=== PATIENT | female | born 1955 | race American Indian/Alaskan Native ===

== ENCOUNTER 2022-04-09 10:15 | Emergency (ER) | payer SELFPAY ==
--- NOTE | 2022-04-09 11:04 | Emergency Department Report ---
Blank Doc - Documentation Documentation: 66-year-old female that presents to the ED for " low blood count" it was sent by her primary care. 1- This is a initial triage assessment/medical screening only. Full assessment and work-up will be completed once the patient is in proper hospital gown, ED bed and in a private room setting. This initial assessment/diagnostic orders/clinical plan/ treatment(s) is/are subject to change based on pt's health status, clinical progression and re-assessment by fellow clinical providers in the ED. Further treatment and workup at subsequent clinical providers discretion. Patient/guardians urged not to elope from ED as their condition may be serious if not clinically assessed and managed. 2-labs The patient was evaluated in the emergency department for symptoms described in the history of present illness. He/she was evaluated in the context of the global COVID-19 pandemic, which necessitated consideration that the patient might be at risk for infection with the virus that causes COVID-19. Institutional protocols and algorithms that pertain to the evaluation of patie nts at risk for COVID-19 are in a state of rapid change based on information released by regulatory bodies including the CDC and federal and state organizations. These policies and algorithms were followed during the patient's care in the emergency department. Please note that these policies, procedures and recommendations changed on a rapid basis.
--- NOTE | 2022-04-09 11:53 | XRay Report ---
CHEST 2 VIEWS INDICATION / CLINICAL INFORMATION: low sats. COMPARISON: CTA chest 10/20/2014, chest radiograph 10/16/2014 FINDINGS: SUPPORT DEVICES: None. HEART / MEDIASTINUM: Mild cardiomegaly. LUNGS / PLEURA: Hazy consolidations within the bilateral lung bases. Small right pleural effusion. No pneumothorax. ADDITIONAL FINDINGS: No significant additional findings. IMPRESSION: 1. Mild cardiomegaly and small right pleural effusion. 2. Hazy bibasilar consolidations possibly representing superimposed pneumonia. Signer Name: Kevin Toledo MD Signed: 04/09/2022 11:48 AM Workstation Name: [id number]
[2022-04-09 12:02] LABS: Hemoglobin 6.5 gm/dl (10.1-14.3); Mean Corpuscular HGB Conc 36 % (30-34); Mean Corpuscular Volume 80 fl (79-97); Platelet Count 213 K/mm3 (140-440); Red Blood Count 2.26 M/mm3 (3.65-5.03)
[2022-04-09 12:04] LABS: Hematocrit 18.1 % (30.3-42.9); Red Cell Distribution Width 26.1 % (13.2-15.2)
[2022-04-09 12:12] LABS: INR 0.95 (0.87-1.13)
[2022-04-09 12:13] LABS: Partial Thromboplastin Time 28.4 Sec. (24.2-36.6)
[2022-04-09 12:37] LABS: Alanine Aminotransferase 16 units/L (7-56); Albumin 4.4 g/dL (3.9-5); Blood Urea Nitrogen 12 mg/dL (7-17); Calcium 10.8 mg/dL (8.4-10.2); Hemolysis Index 34
[2022-04-09 12:41] LABS: Total Cells Counted 100
[2022-04-09 12:42] LABS: Anisocytosis 3+
[2022-04-09 12:43] LABS: Ovalocytes Few; Poikilocytosis 3+; Sickle Cells 2+; Target Cells 1+
[2022-04-09 12:44] LABS: BUN/Creatinine Ratio 24; Platelet Estimate Consistent w Auto; Schistocytes Rare
[2022-04-09] MEDS ORDERED: SODIUM CHLORIDE 0.9% 500 ML 500 ML IV ONE (12:51)
--- NOTE | 2022-04-09 12:57 | Emergency Department Report ---
ED Shortness of Breath HPI - General Chief Complaint: Recheck/Abnormal Lab/Rx Stated Complaint: DR REFERRAL/LOW BLOOD COUNT Time Seen by Provider: 04/09/22 11:02 Source: patient Mode of arrival: Ambulatory Limitations: No Limitations - History of Present Illness Initial Comments: 66-year-old female with a history of PEs, anemia, and sickle cell disease presents to the emergency department after being found with a "low blood count" by her PCP approximately 3 days ago. Patient was told that her hemoglobin was 5.5, and to get evaluated in the emergency department. Patient's only complaint is mild shortness of breath, but denies any other symptoms. Denies chest pain, palpitations, weakness, or dizziness. Patient reports similar proximately 5 yea rs ago, for which she had a blood transfusion. Patient denies vaginal or GI bleeding. Denies known alleviating or aggravating factors. - Related Data Previous Rx's Medication Instructions Recorded Last Taken Type Azithromycin [Zithromax TAB] 500 mg PO QDAY #5 tablet 10/24/14 Unknown Rx Enoxaparin [Lovenox] 40 mg SQ BID 1 Days syringe 10/24/14 Unknown Rx Rivaroxaban [Xarelto] 15 mg PO BID #42 tablet 04/09/22 Unknown Rx Rivaroxaban [Xarelto] 20 mg PO QDAY #10 tab 04/09/22 Unknown Rx Allergies Allergy/AdvReac Type Severity Reaction Status Date / Time No Known Allergies Allergy Verified 04/09/22 12:10 ED Review of Systems ROS: Stated complaint: DR REFERRAL/LOW BLOOD COUNT Other details as noted in HPI Comment: All other systems reviewed and negative Constitutional: denies: chills, fever, weakness Eyes: denies: eye pain, eye discharge, vision change ENT: denies: ear pain, throat pain Respiratory: shortness of breath. denies: cough, SOB with exertion, wheezing Cardiovascular: denies: chest pain, palpitations, edema Endocrine: no symptoms reported Gastrointestinal: denies: abdominal pain, nausea, diarrhea Genitourinary: denies: urgency, dysuria, discharge Musculoskeletal: denies: back pain, joint swelling, arthralgia Skin: denies: rash, lesions Neurological: denies: headache, weakness, paresthesias Psychiatric: denies: anxiety, depression Hematological/Lymphatic: denies: easy bleeding, easy bruising ED Past Medical Hx - Past Medical History Previous Medical History?: Yes Hx Congestive Heart Failure: No Hx Diabetes: No Hx Sickle Cell Disease: Yes Hx Asthma: No Hx COPD: No Additional medical history: anemia - Social History Smoking Status: Never Smoker Substance Use Type: None - Medications Home Medications: Home Medications Medication Instructions Recorded Confirmed Last Taken Type Azithromycin [Zithromax TAB] 500 mg PO QDAY #5 tablet 10/24/14 Unknown Rx Enoxaparin [Lovenox] 40 mg SQ BID 1 Days syringe 10/24/14 Unknown Rx Rivaroxaban [Xarelto] 15 mg PO BID #42 tablet 04/09/22 Unknown Rx Rivaroxaban [Xarelto] 20 mg PO QDAY #10 tab 04/09/22 Unknown Rx ED Physical Exam - General Limitations: No Limitations General appearance: alert, in no apparent distress - Head Head exam: Present: atraumatic, normocephalic - Eye Eye exam: Present: normal appearance, PERRL, EOMI - ENT ENT exam: Present: mucous membranes moist - Neck Neck exam: Present: normal inspection - Respiratory Respiratory exam: Present: normal lung sounds bilaterally. Absent: respiratory distress, wheezes, rales - Cardiovascular Cardiovascular Exam: Present: regular rate, normal rhythm. Absent: systolic murmur, diastolic murmur, rubs, gallop - GI/Abdominal GI/Abdominal exam: Present: soft, normal bowel sounds. Absent: distended, tenderness - Extremities Exam Extremities exam: Present: normal inspection - Back Exam Back exam: Present: normal inspection - Neurological Exam Neurological exam: Present: alert, oriented X3, CN II-XII intact, normal gait - Psychiatric Psychiatric exam: Present: normal affect, normal mood - Skin Skin exam: Present: warm, dry, intact, normal color. Absent: rash ED Course Vital Signs 04/09/22 04/09/22 04/09/22 11:04 12:47 12:48 Temperature 99 F 98.9 F Pulse Rate 77 76 Respiratory 20 17 18 Rate Blood Pressure Blood Pressure 137/36 [Left] O2 Sat by Pulse 92 95 Oximetry 04/09/22 04/09/22 04/09/22 13:00 13:28 13:30 Temperature Pulse Rate 67 79 68 Respiratory 20 22 19 Rate Blood Pressure 151/60 151/60 151/60 Blood Pressure [Left] O2 Sat by Pulse 100 99 100 Oximetry 04/09/22 04/09/22 04/09/22 13:46 14:00 14:16 Temperature Pulse Rate 70 61 70 Respiratory 17 13 20 Rate Blood Pressure 151/60 155/63 151/60 Blood Pressure [Left] O2 Sat by Pulse 100 100 100 Oximetry 04/09/22 04/09/22 04/09/22 14:30 14:46 15:00 Temperature Pulse Rate 63 65 80 Respiratory 17 14 21 Rate Blood Pressure 151/60 141/50 141/50 Blood Pressure [Left] O2 Sat by Pulse 100 100 92 Oximetry 04/09/22 04/09/22 04/09/22 15:16 15:30 15:40 Temperature Pulse Rate 72 63 60 Respiratory 20 19 19 Rate Blood Pressure 153/67 153/67 153/67 Blood Pressure [Left] O2 Sat by Pulse 100 100 100 Oximetry 04/09/22 04/09/22 04/09/22 15:50 15:56 16:00 Temperature 98.8 F Pulse Rate 66 61 61 Respiratory 16 19 19 Rate Blood Pressure 141/49 136/52 136/52 Blood Pressure [Left] O2 Sat by Pulse 100 100 100 Oximetry 04/09/22 04/09/22 04/09/22 16:04 16:09 16:10 Temperature 98.7 F 99.3 F Pulse Rate 64 Respiratory 14 Rate Blood Pressure 140/50 Blood Pressure [Left] O2 Sat by Pulse 100 Oximetry 04/09/22 04/09/22 04/09/22 16:20 16:30 16:40 Temperature Pulse Rate 63 60 63 Respiratory 18 15 13 Rate Blood Pressure 141/55 142/53 130/52 Blood Pressure [Left] O2 Sat by Pulse 100 100 100 Oximetry 04/09/22 04/09/22 04/09/22 16:50 17:00 17:10 Temperature Pulse Rate 64 60 59 L Respiratory 16 14 14 Rate Blood Pressure 142/56 147/51 129/52 Blood Pressure [Left] O2 Sat by Pulse 100 100 100 Oximetry 04/09/22 04/09/22 04/09/22 17:20 17:30 17:40 Temperature Pulse Rate 74 61 57 L Respiratory 20 14 16 Rate Blood Pressure 128/42 130/48 132/52 Blood Pressure [Left] O2 Sat by Pulse 100 100 100 Oximetry 04/09/22 04/09/22 04/09/22 17:50 18:00 18:03 Temperature 98.8 F Pulse Rate 57 L 57 L Respiratory 15 16 Rate Blood Pressure 126/52 129/53 Blood Pressure [Left] O2 Sat by Pulse 100 100 Oximetry ED Medical Decision Making - Lab Data Result diagrams: 04/09/22 11:41 04/09/22 11:41 - Radiology Data Radiology results: report reviewed cta chest: IMPRESSION: 1. Small acute pulmonary embolism within a distal segmental branch the left lower lobe. 2. Likely changes of chronic PE within a lobar branch of the right lower lobe, unchanged dating back to and 15. 3. Splenic atrophy and osseous changes suggestive of sickle cell anemia. 4. Multiple incidental pulmonary nodule(s) in the bilateral lungs measuring 6 x 4 mm with solid characteristics. Recommendation according to Fleischner Society 2017 Guidelines: Low Risk Patient: CT at 3-6 months, then consider CT at 18-24 months; High Risk Patient: CT at 3-6 months, then CT at 18-24 month. CRITICAL RESULT: acute pulmonary embolism Time of Discovery (NEWSPAPER REPORTER/CDT): 1:40 PM Time of Communication (NEWSPAPER REPORTER/CDT): 1:45 PM Licensed Practitioner Receiving Report: Juliane Cooper MD Read-Back Performed: Yes. Signer Name: Lei Toledo MD Signed: 04/09/2022 2:49 PM Workstation Name: [id number] Transcribed By: Dictated By: LEI TOLEDO MD Electronically Authenticated By: LEI TOLEDO MD Signed Date/Time: 04/09/22 2820 Critical care attestation.: If time is entered above; I have spent that time in minutes in the direct care of this critically ill patient, excluding procedure time. ED Disposition Clinical Impression: Anemia Qualifiers: Anemia type: unspecified type Qualified Code(s): D64.9 - Anemia, unspecified Pulmonary embolism Qualifiers: Pulmonary embolism type: single subsegmental (without acute cor pulmonale) Qualified Code(s): I26.93 - Single subsegmental pulmonary embolism without acute cor pulmonale Disposition: 01 HOME / SELF CARE / HOMELESS Is pt being admited?: No Condition: Stable Instructions: Bleeding Precautions When on Anticoagulant Therapy, Adult, Complete Blood Count, Pulmonary Embolism, Blood Transfusion, Adult, Care After, [id number] Prescriptions: Rivaroxaban [Xarelto] 15 mg PO BID #42 tablet Rivaroxaban [Xarelto] 20 mg PO QDAY #10 tab Referrals: NEHEMIAS RUSSELL MD [Referring] - 3-5 Days Time of Disposition: 19:42
[2022-04-09 13:18] LABS: RBC,Urine < 1.0 /HPF (0.0-6.0)
[2022-04-09 13:53] LABS: Color,Urine Straw (Yellow)
[2022-04-09 13:54] LABS: WBC,Urine < 1.0 /HPF (0.0-6.0)
--- NOTE | 2022-04-09 14:54 | Cat Scan Report ---
CTA CHEST WITH CONTRAST INDICATION / CLINICAL INFORMATION: hypoxia h/o pe r/o pe. TECHNIQUE: Axial CT images were obtained through the chest after injection of 60 mL Omnipaque 350 IV contrast. 3 plane MIP and/or 3D reconstructions were produced. All CT scans at this location are perf ormed using CT dose reduction for ALARA by means of automated exposure control. COMPARISON: CTA chest 10/20/2014, chest radiograph of same date. FINDINGS: PULMONARY EMBOLUS: Small acute pulmonary artery filling defects within the distal segmental branches of the left lower lobe. Likely chronic changes of remote pulmonary embolism within a right lower lobe segmental branch which is unchanged in appearance dating back to 10/20/2014. THORACIC AORTA: No significant abnormality. HEART: No significant abnormality. CORONARY ARTERY CALCIFICATION: Absent -- None. MEDIASTINUM / SPENCER: No significant abnormality. PLEURA: No pleural effusion. No pneumothorax. LUNGS: Bibasilar subsegmental atelectasis. Small bilateral pulmonary nodules nodules as follows. 6 x 4 mm peripheral nodule within the left lower lobe (series 4 image 202). 3 x 3 mm nodule within the ri ght middle lobe (series 4 image 198). ADDITIONAL FINDINGS: None. UPPER ABDOMEN: Atrophic calcified spleen. SKELETAL STRUCTURES: Diffusely heterogeneous bone marrow with the chin vertebral bodies, likely repre senting osteonecrosis in the setting of sickle cell anemia. IMPRESSION: 1. Small acute pulmonary embolism within a distal segmental branch the left lower lobe. 2. Likely changes of chronic PE within a lobar branch of the right lower lobe, unchanged dating back to and 15. 3. Splenic atrophy and osseous changes suggestive of sickle cell anemia. 4. Multiple incidental pulmonary nodule(s) in the bilateral lungs measuring 6 x 4 mm with solid ilene cteristics. Recommendation according to Fleischner Society 2017 Guidelines: Low Risk Patient: CT at 3 -6 months, then consider CT at 18-24 months; High Risk Patient: CT at 3-6 months, then CT at 18-24 mo nth. CRITICAL RESULT: acute pulmonary embolism Time of Discovery (NARROW FABRIC CALENDERER/CDT): 1:40 PM Time of Communication (NARROW FABRIC CALENDERER/CDT): 1:45 PM Licensed Practitioner Receiving Report: Juliane Cooper MD Read-Back Performed: Yes. Signer Name: Kevin Toledo MD Signed: 04/09/2022 2:49 PM Workstation Name: [id number]
[2022-04-09] MEDS ORDERED: ENOXAPARIN 100 MG/1 ML INJ SUB-Q ONE ×2 (15:16→19:00)
[2022-04-09] MEDS ORDERED: SODIUM CHLORIDE 0.9% 500 ML 500 ML ONE (15:28)
[2022-04-09 20:30] VITALS: BP 131/59
--- NOTE | 2022-04-10 10:00 | Electrocardiograph Report ---
[facility] Test Date: 2022-04-09 Test Time: 11:20:01 Pat Name: CELE GENTILE Department: Room: Gender: F Senior Packaging Engineer: REYNA : 1955 Requested By: JEANNE GUNTER Order Number: [id number] Reading MD: Jacek Castillo Measurements Intervals [place] Rate: 80 P: 67 HI: 207 QRS: 60 QRSD: 76 T: 78 QT: 358 QTc: 413 Interpretive Statements Sinus rhythm No previous ECG available for comparison Electronically Signed On 04-10-2022 10:00:26 EDT by Jacek Castillo
== END 2022-04-09 20:10 | disposition home or self-care (01) ==
LOC: ED 10:15
DX: D64.9 Anemia, unspecified (principal); I26.99 Other pulmonary embolism without acute cor pulmonale; D57.1 Sickle-cell disease without crisis
CPT/HCPCS: 36415; 36430; 71046; 71275; 80053; 81001; 85007; 85025; 85610; 85660; 85730; 86850; 86900; 86901; 93005; 96360; 96372; 99284; J1650; J7040; P9016; Q9967

== ENCOUNTER 2022-04-11 17:48 | Emergency (ER) | payer BC ==
[2022-04-11 20:44] VITALS: BP 148/52
== END 2022-04-11 21:50 | disposition home or self-care (01) ==
LOC: ED 17:48
DX: D72.819 Decreased white blood cell count, unspecified (principal); Z53.21 Procedure and treatment not carried out due to patient leaving prior to being seen by health care provider

== ENCOUNTER 2022-04-12 11:09 | Outpatient (CLI) | payer BC ==
[2022-04-12 12:04] LABS: Basophils # (Auto) 0.1 K/mm3 (0.0-0.1); Basophils % (Auto) 2.3 % (0.0-1.8); Eosinophils # (Auto) 0.3 K/mm3 (0.0-0.4); Eosinophils % (Auto) 4.2 % (0.0-4.3); Hemoglobin 6.8 gm/dl (10.1-14.3); Lymphocytes # (Auto) 1.6 K/mm3 (1.2-5.4); Mean Corpuscular HGB Conc 35 % (30-34); Mean Corpuscular Volume 81 fl (79-97); Monocytes # (Auto) 0.6 K/mm3 (0.0-0.8); Monocytes % (Auto) 9.6 % (0.0-7.3); Platelet Count 169 K/mm3 (140-440); Red Blood Count 2.42 M/mm3 (3.65-5.03)
[2022-04-12 13:23] LABS: Red Cell Distribution Width 23.6 % (13.2-15.2)
[2022-04-12 13:25] LABS: Hematocrit 19.6 % (30.3-42.9)
== END 2022-04-12 11:10 | disposition home or self-care (01) ==
LOC: LAB 11:09
PROVIDERS: ATTEND Internal Medicine
DX: D64.9 Anemia, unspecified (principal)
CPT/HCPCS: 36415; 85025

== ENCOUNTER 2022-04-23 14:38 | Emergency (ER) | payer BC ==
--- NOTE | 2022-04-23 16:01 | XRay Report ---
CHEST 2 VIEWS INDICATION / CLINICAL INFORMATION: Chest Pain. COMPARISON: 04/01/2022 FINDINGS: SUPPORT DEVICES: None. HEART / MEDIASTINUM: No significant abnormality. LUNGS / PLEURA: Increased interstitial prominence with bilateral pulmonary opacities No pneumothorax. Signer Name: Francisco J Le MD Signed: 04/23/2022 3:57 PM Workstation Name: [id number]
[2022-04-23 16:51] LABS: Hematocrit 20.6 % (30.3-42.9); Hemoglobin 6.8 gm/dl (10.1-14.3); Mean Corpuscular HGB Conc 33 % (30-34); Mean Corpuscular Volume 85 fl (79-97); Platelet Count 217 K/mm3 (140-440); Red Blood Count 2.42 M/mm3 (3.65-5.03)
[2022-04-23 16:52] LABS: Red Cell Distribution Width 23.3 % (13.2-15.2)
[2022-04-23 16:59] LABS: INR 0.95 (0.87-1.13)
[2022-04-23 17:00] LABS: Partial Thromboplastin Time 29.8 Sec. (24.2-36.6)
[2022-04-23 17:12] LABS: Alanine Aminotransferase 12 units/L (7-56); Albumin 4.3 g/dL (3.9-5); Blood Urea Nitrogen 14 mg/dL (7-17); Calcium 10.2 mg/dL (8.4-10.2); Hemolysis Index 10
[2022-04-23 17:13] LABS: BUN/Creatinine Ratio 28
[2022-04-24] MEDS ORDERED: SODIUM CHLORIDE 0.9% 500 ML 500 ML IV ONE (06:57)
--- NOTE | 2022-04-24 14:35 | Emergency Department Report ---
ED Chest Pain HPI - General Chief Complaint: Chest Pain Stated Complaint: CHEST PAIN PUI?: No Time Seen by Provider: 04/24/22 03:49 Source: patient Mode of arrival: Ambulatory Limitations: No Limitations - History of Present Illness Initial Comments: pt is 66 years old with sickle cell anemia , PE supposed to be on xarelto but stopped because it made her mouth bleed , here with central chets pain that goes to her bottom fort he last 2 days , no sob no yonis -: Gradual Onset: during rest Pain Location: substernal Pain Radiation: abdomen Severity scale (0 -10): 0 Improves With: nothing Worsens With: nothing - Related Data Previous Rx's Medication Instructions Recorded Last Taken Type Azithromycin [Zithromax TAB] 500 mg PO QDAY #5 tablet 10/24/14 Unknown Rx Enoxaparin [Lovenox] 40 mg SQ BID 1 Days syringe 10/24/14 Unknown Rx Rivaroxaban [Xarelto] 15 mg PO BID #42 tablet 04/09/22 Unknown Rx Rivaroxaban [Xarelto] 20 mg PO QDAY #10 tab 04/09/22 Unknown Rx Allergies Allergy/AdvReac Type Severity Reaction Status Date / Time No Known Allergies Allergy Verified 04/09/22 12:10 Heart Score - HEART Score History: Slightly suspicious EKG: Normal Age: > 65 Risk factors: 1-2 risk factors Troponin: < normal limit HEART Score: 3 - EKG Read Time Time EKG Completed: 15:14 EKG Read Time: 15:14 - Critical Actions Critical Actions: 0-3 pts:0.9-1.7%risk of adverse cardiac event.Candidate for discharge ED Review of Systems ROS: Stated complaint: CHEST PAIN Other details as noted in HPI ED Past Medical Hx - Past Medical History Previous Medical History?: Yes Hx Congestive Heart Failure: No Hx Diabetes: No Hx Sickle Cell Disease: Yes Hx Asthma: No Hx COPD: No Additional medical history: anemia - Surgical History Past Surgical History?: No - Social History Smoking Status: Never Smoker Substance Use Type: None - Medications Home Medications: Home Medications Medication Instructions Recorded Confirmed Last Taken Type Azithromycin [Zithromax TAB] 500 mg PO QDAY #5 tablet 10/24/14 Unknown Rx Enoxaparin [Lovenox] 40 mg SQ BID 1 Days syringe 10/24/14 Unknown Rx Rivaroxaban [Xarelto] 15 mg PO BID #42 tablet 04/09/22 Unknown Rx Rivaroxaban [Xarelto] 20 mg PO QDAY #10 tab 04/09/22 Unknown Rx ED Physical Exam - General Limitations: No Limitations ED Course Vital Signs 04/23/22 04/24/22 04/24/22 15:05 04:34 06:58 Temperature 98.2 F Pulse Rate 69 74 99 H Respiratory 18 16 18 Rate Blood Pressure 153/51 Blood Pressure 145/47 127/46 [Right] O2 Sat by Pulse 100 97 95 Oximetry 04/24/22 04/24/22 04/24/22 08:14 11:09 14:36 Temperature 97.8 F 97.8 F 98.4 F Pulse Rate 82 78 75 Respiratory 20 18 20 Rate Blood Pressure 132/50 Blood Pressure 114/36 114/44 [Right] O2 Sat by Pulse 100 97 99 Oximetry 04/24/22 04/24/22 18:14 19:30 Temperature 99.7 F H Pulse Rate 76 74 Respiratory 22 18 Rate Blood Pressure 111/35 Blood Pressure 125/38 [Right] O2 Sat by Pulse 94 100 Oximetry ED Medical Decision Making - Lab Data Result diagrams: 04/23/22 16:25 04/23/22 16:25 - EKG Data -: EKG Interpreted by Dc EKG shows normal: sinus rhythm Rate: normal - EKG Data Interpretation: no acute changes - Radiology Data Radiology results: report reviewed, image reviewed - Medical Decision Making work up negative , trop negative ekg normal , Low H.H , will give 1 unit of blood transfusion ot wsa handed over to Dr Ryder at 3 pm to follow up on blood transfusion and dis position Critical care attestation.: If time is entered above; I have spent that time in minutes in the direct care of this critically ill patient, excluding procedure time. ED Disposition Clinical Impression: Chest pain, Sickle cell anemia, Anemia, Homozygous sickle cell (SS) disease Disposition: HOME / SELF CARE / HOMELESS Is pt being admited?: No Does the pt Need Aspirin: No Condition: Stable Instructions: Nonspecific Chest Pain, Adult Referrals: PRIMARY CARE, [Primary Care Provider] - 3-5 Days
[2022-04-24] MEDS ORDERED: SODIUM CHLORIDE 0.9% 500 ML 500 ML ONE (19:55)
[2022-04-24 20:21] VITALS: BP 111/35
--- NOTE | 2022-04-26 09:32 | Electrocardiograph Report ---
[facility] Test Date: 2022-04-23 Test Time: 15:14:06 Pat Name: CELE GENTILE Department: Room: Gender: F [employer] Analyst: JESSICA : 1955 Requested By: LISSETTE RAZA Order Number: [id number] Reading MD: Jacek Castillo Measurements Intervals [place] Rate: 75 P: 0 SC: 80 QRS: 33 QRSD: 87 T: 59 QT: 387 QTc: 433 Interpretive Statements Sinus rhythm Compared to ECG 04/09/2022 11:20:01 No significant changes Electronically Signed On 04-26-2022 9:31:57 EDT by Jacek Castillo
== END 2022-04-24 22:49 | disposition home or self-care (01) ==
LOC: ED 14:38
DX: D57.1 Sickle-cell disease without crisis (principal); D64.9 Anemia, unspecified; D57.3 Sickle-cell trait; R07.89 Other chest pain; Z79.899 Other long term (current) drug therapy
CPT/HCPCS: 36415; 36430; 71046; 80053; 84484; 85027; 85045; 85610; 85660; 85730; 86850; 86900; 86901; 93005; 99284; J7040; P9016